=== PATIENT | female | born 1965 | race Two or more races ===

== ENCOUNTER → 2017-05-13 | Outpatient (CLI) | payer OTHER ==
--- NOTE | 2017-05-13 13:02 | RADIOLOGY REPORT (SQ) ---
EXAM DESCRIPTION: SHOULDER LEFT 2 OR MORE VIEWS COMPLETED DATE/TIME: 05/13/2017 11:36 am REASON FOR STUDY: PAIN IN LEFT SHOULDER M25.512 PAIN IN LEFT SHOULDER COMPARISON: None. NUMBER OF VIEWS: Three views. TECHNIQUE: Internal rotation, external rotation, and Y view images acquired of the left shoulder. LIMITATIONS: None. FINDINGS: MINERALIZATION: Normal. BONES: No acute fracture or dislocation. No worrisome bone lesions. JOINTS: Normal glenohumeral joint alignment. No widening at the acromioclavicular joint. Mild bony spurring and subcortical cyst formation at the AC joint. VISUALIZED LUNGS AND RIBS: 1 cm nodular area of pleural thickening at the left lung apex. Follow-up two-view chest film recommended. SOFT TISSUES: No radiopaque foreign body. OTHER: No other significant finding. IMPRESSION: Degenerative changes at the left acromioclavicular joint Incidental finding of a 1 cm nodular area of pleural thickening at the left lung apex. Follow-up two -view chest recommended TECHNICAL DOCUMENTATION: JOB ID: [id number] [employer]- All Rights Reserved
== END ==
LOC: OD 11:18
PROVIDERS: ATTEND Physician Assistant
DX: M25.512 Pain in left shoulder (principal)

== ENCOUNTER → 2017-05-18 | Outpatient (CLI) | payer OTHER ==
--- NOTE | 2017-05-18 12:55 | RADIOLOGY REPORT (SQ) ---
EXAM DESCRIPTION: CHEST PA/LATERAL COMPLETED DATE/TIME: 05/18/2017 11:29 am REASON FOR STUDY: LUNG NODULE COMPARISON: None. EXAM PARAMETERS: NUMBER OF VIEWS: two views TECHNIQUE: Digital Frontal and Lateral radiographic views of the chest acquired. RADIATION DOSE: NA LIMITATIONS: none FINDINGS: LUNGS AND PLEURA: No opacities, masses or pneumothorax. No pleural effusion. MEDIASTINUM AND HILAR STRUCTURES: No masses or contour abnormalities. HEART AND VASCULAR STRUCTURES: Heart normal size. No evidence for failure. BONES: No acute findings. HARDWARE: None in the chest. OTHER: No other significant finding. IMPRESSION: NO SIGNIFICANT RADIOGRAPHIC FINDING IN THE CHEST. TECHNICAL DOCUMENTATION: JOB ID: [id number] [employer]- All Rights Reserved
== END ==
LOC: OD 11:12
PROVIDERS: ATTEND Physician Assistant
DX: R91.1 Solitary pulmonary nodule (principal)
CPT/HCPCS: 71046

== ENCOUNTER 2017-07-19 11:38 | Emergency (ER) | payer OTHER ==
[2017-07-19] MEDS ORDERED: NORMAL SALINE 1000 ML 1,000 ML IV ONE (12:03)
[2017-07-19] MEDS ORDERED: MORPHINE SULFATE 10 MG/ML INJ IV ONE (12:03)
[2017-07-19] MEDS ORDERED: ONDANSETRON HCL INJ/PF 4 MG/2 ML SDV IV ONE (12:03)
--- NOTE | 2017-07-19 12:04 | ER Document Report ---
ED Medical Screen (RME) - General Chief Complaint: Nausea/Vomiting Stated Complaint: WEAKNESS Time Seen by Provider: 07/19/17 12:02 Notes: Patient noticed a left forehead painful rash for the last 5 days. Initially was diagnosed as eczema and then cellulitis. Today she was told it may be shingles and referred to the emergency department. Patient has been taking antibiotics as well as antivirals. She complains of weakness chills nausea vomiting. She states that she has pain around her eye but no vision changes. TRAVEL OUTSIDE OF THE [place] IN LAST 30 DAYS: No - Related Data Allergies/Adverse Reactions: azithromycin [From Zithromax] Allergy (Verified 07/19/17 11:49) Past Medical History - Social History Chew tobacco use (# tins/day): No Frequency of alcohol use: None Drug Abuse: None Neurological Medical History: Reports: Hx Seizures Renal/ Medical History: Denies: Hx Peritoneal Dialysis Past Surgical History: Reports: Hx Cholecystectomy, Hx Hysterectomy, Hx Tubal Ligation Physical Exam - Vital signs Vitals: Temp Pulse Resp BP Pulse Ox 97.7 F 93 18 134/65 H 98 07/19/17 11:46 07/19/17 11:46 07/19/17 11:46 07/19/17 11:46 07/19/17 11:46 Course - Vital Signs Vital signs: Temp Pulse Resp BP Pulse Ox 97.7 F 93 18 134/65 H 98 07/19/17 11:46 07/19/17 11:46 07/19/17 11:46 07/19/17 11:46 07/19/17 11:46
[2017-07-19 12:44] LABS: ABSOLUTE LYMPHOCYTES (AUTO) 0.8 10^3/uL (0.5-4.7); ABSOLUTE MONOCYTES (AUTO) 0.5 10^3/uL (0.1-1.4); ABSOLUTE NEUT (AUTO) 7.9 10^3/uL (1.7-8.2); BASOPHILS % (AUTO) 0.4 % (0-2); EOSINOPHILS % (AUTO) 0.3 % (0-6); HEMATOCRIT 43.3 % (36.0-47.0); HEMOGLOBIN 14.9 g/dL (12.0-15.5); LYMPHOCYTES % (AUTO) 8.3 % (13-45); MEAN CORPUSCULAR HEMOGLOBIN 29.9 pg (27.0-33.4); MEAN CORPUSCULAR HGB CONC 34.5 g/dL (32.0-36.0); MEAN CORPUSCULAR VOLUME 87 fl (80-97); PLATELET COUNT 304 10^3/uL (150-450); RED BLOOD COUNT 4.99 10^6/uL (3.72-5.28); RED CELL DISTRIBUTION WIDTH 12.9 % (11.5-14.0); TOTAL CELLS COUNTED % (AUTO) 100 %; WHITE BLOOD COUNT 9.1 10^3/uL (4.0-10.5)
[2017-07-19 13:57] LABS: ALANINE AMINOTRANSFERASE 40 U/L (9-52); ALBUMIN 3.9 g/dL (3.5-5.0); ALKALINE PHOSPHATASE 84 U/L (38-126); ANION GAP 9 (5-19); ASPARTATE AMINO TRANSFERASE 31 U/L (14-36); BILIRUBIN,DIRECT 0.2 mg/dL (0.0-0.4); BILIRUBIN,TOTAL 0.2 mg/dL (0.2-1.3); BLOOD UREA NITROGEN 14 mg/dL (7-20); CALCIUM 8.8 mg/dL (8.4-10.2); CARBON DIOXIDE 26 mmol/L (22-30); CHLORIDE 105 mmol/L (98-107); GLUCOSE 100 mg/dL (75-110); POTASSIUM 4.5 mmol/L (3.6-5.0); SODIUM 140.3 mmol/L (137-145); TOTAL PROTEIN 5.9 g/dL (6.3-8.2)
--- NOTE | 2017-07-19 14:04 | ER Document Report ---
ED General - General Chief Complaint: Nausea/Vomiting Stated Complaint: WEAKNESS Time Seen by Provider: 07/19/17 12:02 Mode of Arrival: Ambulatory Information source: Patient, Relative Notes: 51-year-old female with a history of seizures, (on Lamictal), migraines, presents with complaint of facial pain, nausea and vomiting. Patient states that she developed a rash 5 days prior to arrival. She states she was initially diagnosed with eczema and then 2 days later at urgent care diagnosed with shingles. She was placed on Valtrex, hydrocodone, Bactrim and Keflex. Patient presents today with facial swelling, nausea and one episode of vomiting. Patient denies any current nausea and states she believes it was because she took her hydrocodone without food. Patient denies current nausea, fever, chest pain, shortness of breath, abdominal pain, back pain, dysuria, vaginal discharge. She does admit to left ear pain, left facial pain and forehead pain. Denies prior similar symptoms. She has been taking her prescribed Lamictal. Her last seizure was yesterday. TRAVEL OUTSIDE OF THE [place] IN LAST 30 DAYS: No - HPI Onset: Last week Onset/Duration: Gradual Quality of pain: Burning Associated symptoms: Body/muscle aches, Nausea, Vomiting, Weakness. denies: Fever, Shortness of breath Exacerbated by: Denies Relieved by: Denies Similar symptoms previously: No Recently seen / treated by doctor: Yes - Related Data Allergies/Adverse Reactions: azithromycin [From Zithromax] Allergy (Verified 07/19/17 11:49) Past Medical History - General Information source: Patient - Social History Smoking Status: Current Every Day Smoker Chew tobacco use (# tins/day): No Frequency of alcohol use: None Drug Abuse: None Lives with: Family Family History: Reviewed & Not Pertinent Patient has suicidal ideation: No Patient has homicidal ideation: No - Medical History Medical History: Other - Seizure Neurological Medical History: Reports: Hx Migraine, Hx Seizures Renal/ Medical History: Denies: Hx Peritoneal Dialysis Past Surgical History: Reports: Hx Cholecystectomy, Hx Hysterectomy, Hx Tubal Ligation Review of Systems - Review of Systems Notes: Patient denies current headache, nausea, fever, chest pain, shortness of breath , abdominal pain, back pain, dysuria, vaginal discharge. She does admit to left ear pain, left facial pain and forehead pain. Physical Exam - Vital signs Vitals: Temp Pulse Resp BP Pulse Ox 97.7 F 93 18 134/65 H 98 07/19/17 11:46 07/19/17 11:46 07/19/17 11:46 07/19/17 11:46 07/19/17 11:46 - Notes Notes: PHYSICAL EXAMINATION: GENERAL: Well-appearing, well-nourished and in no acute distress. HEAD: Edema to the left side of the forehead, periorbital edema. Scattered scabbed lesions of the forehead, nonvesicular, nonpustular, EYES: Pupils equal round and reactive to light, extraocular movements intact, conjunctiva are normal. No corneal abrasion, or dendritic pattern. ENT: Nares patent, oropharynx clear without exudates. Moist mucous membranes. NECK: Normal range of motion, supple. positive cervical lymphadenopathy LUNGS: Breath sounds clear to auscultation bilaterally and equal. No wheezes rales or rhonchi. HEART: Regular rate and rhythm without murmurs ABDOMEN: Soft, nontender, nondistended abdomen. No guarding, no rebound. No masses appreciated. Female : deferred Musculoskeletal: Normal range of motion, no pitting or edema. No cyanosis. NEUROLOGICAL: Cranial nerves grossly intact. Normal speech, normal gait. Normal sensory, motor exams PSYCH: Normal mood, normal affect. SKIN: Warm, Dry, normal turgor, no rashes or lesions noted. Course - Re-evaluation Re-evalutation: Laboratory 07/19/17 07/19/17 07/19/17 12:27 12:27 13:25 WBC 9.1 RBC 4.99 Hgb 14.9 Hct 43.3 MCV 87 MCH 29.9 MCHC 34.5 RDW 12.9 Plt Count 304 Seg Neutrophils % 86.0 H Lymphocytes % 8.3 L Monocytes % 5.0 Eosinophils % 0.3 Basophils % 0.4 Absolute Neutrophils 7.9 Absolute Lymphocytes 0.8 Absolute Monocytes 0.5 Absolute Eosinophils 0.0 Absolute Basophils 0.0 Sodium Cancelled 140.3 Potassium Cancelled 4.5 Chloride Cancelled 105 Carbon Dioxide Cancelled 26 Anion Gap Cancelled 9 BUN Cancelled 14 Creatinine Cancelled 0.68 Est GFR ( Amer) Cancelled > 60 Est GFR (Non-Af Amer) Cancelled > 60 Glucose Cancelled 100 Calcium Cancelled 8.8 Total Bilirubin Cancelled 0.2 Direct Bilirubin Cancelled 0.2 Neonat Total Bilirubin Cancelled Not Reportable Neonat Direct Bilirubin Cancelled Not Reportable Neonat Indirect Bili Cancelled Not Reportable AST Cancelled 31 ALT Cancelled 40 Alkaline Phosphatase Cancelled 84 Total Protein Cancelled 5.9 L Albumin Cancelled 3.[address] 07/19/17 13:47 IMPRESSION: No evidence of orbital cellulitis. Small bilateral superficial parotid gland masses. 07/19/17 14:08 51-year-old female with a history of seizures, (on Lamictal), migraines presents with complaint of facial pain, nausea and vomiting. Patient states that she developed a rash 5 days prior to arrival. She states she was initially diagnosed with eczema and then 2 days later at urgent care diagnosed with shingles. She was placed on Valtrex, hydrocodone, Bactrim and Keflex. Patient presents today with facial swelling, nausea and one episode of vomiting. Vital Signs stable upon arrival. She is afebrile, not hypoxic. Patient does not appear toxic or dehydrated. She is in no acute distress. Exam is significant for scabbed lesions on the forehead and periorbital edema with mild tenderness with palpation. Slit lamp exam was performed and showed no dendritic lesions. CBC is without leukocytosis or anemia, CMP shows no electrolyte abnormalities. CT of the face is pending to assess for orbital cellulitis versus facial cellulitis. 07/19/17 16:27 I did speak to the radiologist regarding the parotid masses notated on CT of the face. She states they are likely parotid lymph nodes and recommends ENT follow-up. I have discussed all of the findings with the patient who has her family at the bedside and is comfortable with discharge home. - Vital Signs Vital signs: Temp Pulse Resp BP Pulse Ox 97.7 F 93 17 121/55 L 97 07/19/17 11:46 07/19/17 11:46 07/19/17 13:01 07/19/17 13:01 07/19/17 13:01 - Laboratory Result Diagrams: 07/19/17 12:27 07/19/17 13:25 Laboratory results interpreted by me: 07/19/17 07/19/17 12:27 13:25 Seg Neutrophils % 86.0 H Lymphocytes % 8.3 L Total Protein 5.9 L - Diagnostic Test Radiology reviewed: Pending Discharge - Discharge Clinical Impression: Facial swelling, Parotitis, acute Zoster Qualifiers: Herpes zoster complications: without complications Qualified Code(s): B02.9 - Zoster without complications Condition: Good Disposition: HOME, SELF-CARE Instructions: Acute Parotid Gland Swelling ([facility]), Shingles ([facility]) Additional Instructions: Please make an appointment with your medical imaging technologist in the next 1-3 days. Prescriptions: Clindamycin HCl 600 mg PO TID 10 Days #60 capsule Ondansetron HCl [Zofran 4 mg Tablet] 1 - 2 tab PO Q4H PRN #10 tablet PRN Reason: Referrals: NEW BOSE PA-C [Primary Care Provider] - Follow up in 3-5 days LEV BARRIOS DO [ASSOCIATE] - Follow up as needed
[2017-07-19] MEDS ORDERED: CLINDAMYCIN 600 MG/D5W RTU 600 MG/50 ML RTUPB IV ONE (15:42)
--- NOTE | 2017-07-19 15:46 | RADIOLOGY REPORT (SQ) ---
EXAM DESCRIPTION: CT FACIAL AREA WITH COMPLETED DATE/TIME: 07/19/2017 2:35 pm REASON FOR STUDY: concern for orbital cellulits COMPARISON: None. TECHNIQUE: Post contrast images through the facial bones and orbits windowed for bone and soft tissu e. Additional coronal and sagittal reconstructed images reviewed. All images stored on PACS. All CT scanners at this facility use dose modulation, iterative reconstruction, and/or weight based d osing when appropriate to reduce radiation dose to as low as reasonably achievable (ALARA). [facility]: Dose Right [facility]: CareDose [facility]: Dose Right [facility]: Teradose 4D [facility]: Contraqer CONTRAST TYPE AND DOSE: contrast/concentration: Isovue 370.00 mg/ml; Total Contrast Delivered: 50.0 ml; Total Saline Delivered: 50.0 ml RENAL FUNCTION: NA. RADIATION DOSE: CT Rad equipment meets quality standard of care and radiation dose reduction techniq ues were employed. CTDIvol: 30.4 mGy. DLP: 600 mGy-cm. . LIMITATIONS: None. FINDINGS: FACIAL BONES: No fracture or bone lesion. ORBITS: Intact. No fracture. Symmetric intact globes and retroorbital soft tissues. PARANASAL SINUSES: Retention cyst floor of right maxillary sinus. Otherwise maxillary sinuses demons trate no abnormality. No abnormality of frontal ethmoid or sphenoid sinuses. No nasal polyps. Maxil amty sinus outlets are patent. SOFT TISSUES: There are well-circumscribed enhancing masses noted in the superficial right and left p arotid glands. INFERIOR BRAIN: Limited view. No acute findings. OTHER: Small bilateral cervical nodes. BONY STRUCTURES: Cervical spondylosis with degenerative disc disease at C3 -7. IMPRESSION: No evidence of orbital cellulitis. Small bilateral superficial parotid gland masses. TECHNICAL DOCUMENTATION: JOB ID: [id number] Quality ID # [id number]: Final reports with documentation of one or more dose reduction techniques (e.g., Au tomated exposure control, adjustment of the mA and/or kV according to patient size, use of iterative reconstruction technique) 2010 [employer]- All Rights Reserved Reading location - IP/workstation name: [email or web address]
[2017-07-19] MEDS ORDERED: FENTANYL CITRATE INJ/PF 100 MCG/2 ML AMPUL IV ONE (15:57)
[2017-07-19 16:35] VITALS: BP 117/54
== END 2017-07-19 16:35 | disposition home or self-care (01) ==
LOC: ER 11:38
DX: B02.9 Zoster without complications (principal); K11.21 Acute sialoadenitis; R11.2 Nausea with vomiting, unspecified; R51 Headache; H92.02 Otalgia, left ear; R53.1 Weakness; F17.200 Nicotine dependence, unspecified, uncomplicated; R56.9 Unspecified convulsions; Z79.899 Other long term (current) drug therapy; Z88.1 Allergy status to other antibiotic agents
CPT/HCPCS: 99285; 96361; 96374; 96375; 36415; 85025; 80053; 70487; J3010; J2270; J2405; J7030

== ENCOUNTER 2018-09-07 07:59 | Emergency (ER) | payer OTHER ==
[2018-09-07 08:13] VITALS: BP 122/54
[2018-09-07] MEDS ORDERED: FAMOTIDINE 20 MG TABLET PO ONE (09:23)
[2018-09-07] MEDS ORDERED: PREDNISONE 20 MG TABLET PO ONE (09:23)
[2018-09-07] MEDS ORDERED: ASPIRIN 81 MG TABLET, CHEWABLE PO ONE (09:23)
--- NOTE | 2018-09-07 09:26 | ER Document Report ---
ED Medical Screen (RME) - General Chief Complaint: Allergic Reaction Stated Complaint: POSSIBLE ALLERGIC REACTION Time Seen by Provider: 09/07/18 09:23 Primary Care Provider: NEW BOSE PA-C [Primary Care Provider] - Follow up as needed Mode of Arrival: Ambulatory Information source: Patient Notes: 52-year-old female presented to ED for complaint of swelling to her tongue and lips since the weekend. She states she went to her primary care doctor yesterday and was prescribed steroids but they accidentally sent the prescription to [facility] instead of [facility] so she was not able to get them. She states she went home the swelling got worse to her lips and mouth and she now has pain to her neck and chest. Patient states the PCM did blood work yesterday to check for allergies but what she will not get those results back until Wednesday. She states she did not have chest pain yesterday when she saw the doctor. Patient does have a history of seizures but does not have a history of heart problems. She does have a history of a hysterectomy bilateral tubal ligation gallbladder removal. She does smoke cigarettes 6 a day no alcohol no drugs. I have greeted and performed a rapid initial assessment of this patient. A comprehensive ED assessment and evaluation of the patient, analysis of test results and completion of medical decision making process will be conducted by an additional ED providers. Dictation of this chart was performed using voice recognition software; therefore, there may be some unintended grammatical errors. TRAVEL OUTSIDE OF THE [place] IN LAST 30 DAYS: No - Related Data Allergies/Adverse Reactions: azithromycin [From Zithromax] Allergy (Verified 09/07/18 08:00) Past Medical History Neurological Medical History: Reports: Hx Migraine, Hx Seizures Renal/ Medical History: Denies: Hx Peritoneal Dialysis Past Surgical History: Reports: Hx Cholecystectomy, Hx Hysterectomy, Hx Tubal Ligation Physical Exam - Vital signs Vitals: Temp Pulse BP Pulse Ox 98.2 F 80 122/54 L 98 09/07/18 08:08 09/07/18 08:08 09/07/18 08:08 09/07/18 08:08 Course - Vital Signs Vital signs: Temp Pulse Resp BP Pulse Ox 98.2 F 80 122/54 L 98 09/07/18 08:08 09/07/18 08:08 09/07/18 08:08 09/07/18 08:08 Doctor's Discharge - Discharge Referrals: NEW BOSE PA-C [Primary Care Provider] - Follow up as needed
[2018-09-07 10:01] LABS: APPEARANCE,URINE CLEAR; BILIRUBIN,URINE NEGATIVE (NEGATIVE); COLOR,URINE STRAW; GLUCOSE, URINE NEGATIVE (NEGATIVE); KETONES,URINE NEGATIVE (NEGATIVE); LEUKOCYTE ESTERASE,URINE TRACE (NEGATIVE); NITRITE,URINE NEGATIVE (NEGATIVE); PROTEIN,URINE NEGATIVE (NEGATIVE); URINE SPECIFIC GRAVITY 1.002; UROBILINOGEN,URINE NEGATIVE mg/dL (<2.0)
[2018-09-07 10:03] LABS: ABSOLUTE EOSINOPHILS # (AUTO) 0.1 10^3/uL (0.0-0.6); ABSOLUTE LYMPHOCYTES (AUTO) 2.3 10^3/uL (0.5-4.7); ABSOLUTE MONOCYTES (AUTO) 0.6 10^3/uL (0.1-1.4); ABSOLUTE NEUT (AUTO) 10.4 10^3/uL (1.7-8.2); BASOPHILS % (AUTO) 0.4 % (0-2); EOSINOPHILS % (AUTO) 1.1 % (0-6); HEMATOCRIT 47.2 % (36.0-47.0); HEMOGLOBIN 16.1 g/dL (12.0-15.5); LYMPHOCYTES % (AUTO) 16.8 % (13-45); MEAN CORPUSCULAR HEMOGLOBIN 29.4 pg (27.0-33.4); MEAN CORPUSCULAR HGB CONC 34.1 g/dL (32.0-36.0); MEAN CORPUSCULAR VOLUME 86 fl (80-97); MONOCYTES % (AUTO) 4.2 % (3-13); RED BLOOD COUNT 5.47 10^6/uL (3.72-5.28); RED CELL DISTRIBUTION WIDTH 13.1 % (11.5-14.0); SEGMENTED NEUTROPHILS % (AUTO) 77.5 % (42-78); TOTAL CELLS COUNTED % (AUTO) 100 %; WHITE BLOOD COUNT 13.4 10^3/uL (4.0-10.5)
[2018-09-07 10:21] LABS: ALANINE AMINOTRANSFERASE 31 U/L (9-52); ALBUMIN 4.8 g/dL (3.5-5.0); ALKALINE PHOSPHATASE 99 U/L (38-126); ANION GAP 13 (5-19); ASPARTATE AMINO TRANSFERASE 31 U/L (14-36); BILIRUBIN,DIRECT 0.4 mg/dL (0.0-0.4); BILIRUBIN,TOTAL 0.6 mg/dL (0.2-1.3); BLOOD UREA NITROGEN 12 mg/dL (7-20); CALCIUM 9.9 mg/dL (8.4-10.2); CARBON DIOXIDE 24 mmol/L (22-30); CHLORIDE 106 mmol/L (98-107); GLUCOSE 90 mg/dL (75-110); LIPASE 106.1 U/L (23-300); POTASSIUM 4.7 mmol/L (3.6-5.0); SODIUM 142.9 mmol/L (137-145); TOTAL PROTEIN 7.4 g/dL (6.3-8.2)
[2018-09-07 10:25] LABS: PLATELET COUNT 303 10^3/uL (150-450)
[2018-09-07 10:31] LABS: CREATINE KINASE MB 0.56 ng/mL (<4.55)
[2018-09-07 10:41] LABS: TROPONIN I < 0.012 ng/mL
--- NOTE | 2018-09-07 12:03 | RADIOLOGY REPORT (SQ) ---
EXAM DESCRIPTION: CHEST 2 VIEWS COMPLETED DATE/TIME: 09/07/2018 11:54 am REASON FOR STUDY: cough COMPARISON: 05/18/2017 EXAM PARAMETERS: NUMBER OF VIEWS: two views TECHNIQUE: Digital Frontal and Lateral radiographic views of the chest acquired. RADIATION DOSE: NA LIMITATIONS: none FINDINGS: LUNGS AND PLEURA: No opacities, masses or pneumothorax. No pleural effusion. Stable biapi shola scarring. MEDIASTINUM AND HILAR STRUCTURES: No masses or contour abnormalities. HEART AND VASCULAR STRUCTURES: Heart normal size. No evidence for failure. BONES: No acute findings. HARDWARE: Prior cholecystectomy. OTHER: No other significant finding. IMPRESSION: No focal airspace disease or other evidence of acute cardiopulmonary process. TECHNICAL DOCUMENTATION: JOB ID: [id number] [employer]- All Rights Reserved Reading location - IP/workstation name: [email or web address]
--- NOTE | 2018-09-07 12:43 | ER Document Report ---
ED Allergic Reaction - General Chief Complaint: Allergic Reaction Stated Complaint: POSSIBLE ALLERGIC REACTION Time Seen by Provider: 09/07/18 09:23 Primary Care Provider: NEW BOSE PA-C [NO LOCAL MD] - Follow up as needed Mode of Arrival: Ambulatory Information source: Patient, Relative Notes: Patient is a 52-year-old female comes emergency room complaining of allergic reaction. Patient states that she started with a minor reaction on the weekend and believes it might have been from a new meter of that they attempted. On the next couple days she started noticing tingling and swelling of her lips and then yesterday she noticed lips and tongue. She went to her primary care provider yesterday and she was written for some steroids but there was a mixup and she was not able to pick them up today. Patient states that overnight the tongue got worse and the lips got bigger so she decided to come to the emergency room. Again the only thing he can think of was the mirror of the they have changed differently. This morning she also had also mild amount of shortness of breath and a hard time catching her breath. She has had no chest pain no nausea or vomiting. TRAVEL OUTSIDE OF THE [place] IN LAST 30 DAYS: No - HPI Onset: Other - 3 days Onset/Duration: Sudden, Worse Quality of pain: No pain Severity: Moderate Pain Level: 3 Identified cause: Possibly Food exposure: Other - Spice Skin rash / itching: Facial Swelling: Face, Lip(s), Tongue, Throat Trouble swallowing / speaking: Mild Associated symptoms: Other - Shortness of breath Similar symptoms previously: No Recently seen / treated by doctor: No - Related Data Allergies/Adverse Reactions: azithromycin [From Zithromax] Allergy (Verified 09/07/18 08:00) Past Medical History - General Information source: Relative - Social History Smoking Status: Current Every Day Smoker Cigarette use (# per day): Yes - 6 cigarettes a day Chew tobacco use (# tins/day): No Smoking Education Provided: Yes Frequency of alcohol use: None Drug Abuse: None Lives with: Family Family History: Reviewed & Not Pertinent Neurological Medical History: Reports: Hx Migraine, Hx Seizures Renal/ Medical History: Denies: Hx Peritoneal Dialysis Past Surgical History: Reports: Hx Cholecystectomy, Hx Hysterectomy, Hx Tubal Ligation Review of Systems - Review of Systems Constitutional: No symptoms reported EENT: Nose congestion, Throat swelling, Mouth swelling Cardiovascular: No symptoms reported Respiratory: Cough, Short of breath Gastrointestinal: No symptoms reported Genitourinary: No symptoms reported Female Genitourinary: No symptoms reported Musculoskeletal: No symptoms reported Skin: No symptoms reported Hematologic/Lymphatic: No symptoms reported Neurological/Psychological: No symptoms reported -: Yes All other systems reviewed and negative Physical Exam - Vital signs Vitals: Temp Pulse BP Pulse Ox 98.2 F 80 122/54 L 98 09/07/18 08:08 09/07/18 08:08 09/07/18 08:08 09/07/18 08:08 Interpretation: Normal - Notes Notes: PHYSICAL EXAMINATION: GENERAL: Patient is a well-nourished well-developed 52-year-old female is in no apparent distress today on physical examination. HEAD: Atraumatic, normocephalic. EYES: Pupils equal round and reactive to light, extraocular movements intact, conjunctiva are normal. ENT: Examination of patient's area of complaint are her lips and tongue and throat. Examination after receiving the oral prednisone and the H2 bryant her symptomatology had faded and her lips were back to almost normal the tongue was almost normal and the throat was normal. There is no signs of any obstructions. Airway was patent. NECK: Normal range of motion, supple without lymphadenopathy LUNGS: Breath sounds clear to auscultation bilaterally and equal. No wheezes rales or rhonchi. HEART: Regular rate and rhythm without murmurs NEUROLOGICAL: Normal speech, normal gait. Normal sensory, motor exams PSYCH: Normal mood, normal affect. SKIN: No rash seen on patient's abdomen back or extremities Course - Re-evaluation Re-evalutation: 09/07/18 12:43 Patient progressed relatively fast on the medications was provided here in the emergency room. I cannot find any abnormalities on my physical exam however felt it was in order to be complete she needed at least a chest x-ray and spent a little time while the medications had further time to work. I did contact the pharmacy at [facility] and I talked to the pharmacist there her provider did call her in a rather long taper however its waiting for her at the pharmacy. Also placing her on Zantac 150 mg twice daily for 14 days. I have instructed her if she has any itching going on she can take Benadryl 50 mg every 6 hours. I am also writing her a EpiPen in case the symptomatology returns back. I also instructed her to contact her primary care provider in order for her to be worked up on her allergies are to see if she needs to see an benefits specialist. - Vital Signs Vital signs: Temp Pulse Resp BP Pulse Ox 98.2 F 80 122/54 L 98 09/07/18 08:08 09/07/18 08:08 09/07/18 08:08 09/07/18 08:08 - Laboratory Result Diagrams: 09/07/18 09:45 09/07/18 09:45 Laboratory results interpreted by me: 09/07/18 09/07/18 09:45 09:45 WBC 13.4 H RBC 5.47 H Hgb 16.1 H Hct 47.2 H Absolute Neutrophils 10.4 H Ur Leukocyte Esterase TRACE H Discharge - Discharge Clinical Impression: Allergic reaction Qualifiers: Encounter type: initial encounter Qualified Code(s): T78.40XA - Allergy, unspecified, initial encounter Angioedema Qualifiers: Encounter type: initial encounter Qualified Code(s): T78.3XXA - Angioneurotic edema, initial encounter Condition: Stable Disposition: HOME, SELF-CARE Instructions: Acute Allergic Reaction ([facility]) Additional Instructions: As we discussed your primary care doctor has called you and a taper of steroids. Take them as he is directed you. Of also going to write you a prescription for Zantac 150 mg take that twice a day for the next 14 days. If you should have any itching occur you should also take Benadryl 50 mg every 6 hours for the itching highly important you try to remove any offensive substance such as the meat rub that she did inform me about however since we cannot be 100% certain this is the problem I am also writing you for a EpiPen. As I have indicated to you that if you become associated with that offending substance again that the reaction could be worse than this could stop you from breathing. Highly important to carry this EpiPen with you at all times. Again you need to contact her primary care provider for further follow-up and to see if he wishes you to see an benefits specialist. Should you have any concerns or problems return to ER for recheck. Prescriptions: Epinephrine [Epipen Jr 0.15 mg/0.3 mL AutoInject] 1 ea IM ASDIR PRN #1 autoinjector PRN Reason: Epinephrine [Epipen Jr 0.15 mg/0.3 mL AutoInject] 1 ea IM ASDIR PRN #1 autoinjector PRN Reason: Ranitidine HCl 150 mg PO BID #28 tablet Referrals: NEW BOSE PA-C [NO LOCAL MD] - Follow up as needed
--- NOTE | 2018-09-07 22:17 | EKG REPORT ---
SEVERITY:- NORMAL ECG - SINUS RHYTHM : Confirmed by: Rasheeda Ignacio MD 07-Sep-2018 22:16:26
== END 2018-09-07 13:30 | disposition home or self-care (01) ==
LOC: ER 07:59
DX: T78.3XXA Angioneurotic edema, initial encounter (principal); T38.0X6A Underdosing of glucocorticoids and synthetic analogues, initial encounter; Z91.128 Patient's intentional underdosing of medication regimen for other reason; Z91.14 Patient's other noncompliance with medication regimen; R06.02 Shortness of breath; R09.81 Nasal congestion; R05 Cough; F17.210 Nicotine dependence, cigarettes, uncomplicated; Z88.1 Allergy status to other antibiotic agents
CPT/HCPCS: 93005; 99284; 36415; 87086; 82553; 83690; 85025; 80053; 81001; 84484; 71046; 93010; J7512

== ENCOUNTER → 2019-07-07 | Outpatient (CLI) | payer OTHER ==
[2019-07-07 15:48] LABS: FREE T4 (FREE THYROXINE) 1.11 ng/dL (0.78-2.19)
[2019-07-07 16:01] LABS: THYROID STIMULATING HORMONE 1.75 uIU/mL (0.47-4.68)
== END ==
LOC: OD 14:18
PROVIDERS: ATTEND Otolaryngology
DX: J30.9 Allergic rhinitis, unspecified (principal); M05.20 Rheumatoid vasculitis with rheumatoid arthritis of unspecified site
CPT/HCPCS: 36415; 82785; 84439; 84443; 86003

== ENCOUNTER → 2019-07-11 | Outpatient (CLI) | payer OTHER ==
--- NOTE | 2019-07-11 17:25 | RADIOLOGY REPORT (SQ) ---
EXAM DESCRIPTION: CT SINUSES FOR ENT IMAGES COMPLETED DATE/TIME: 07/11/2019 1:41 pm REASON FOR STUDY: J30.9 ALLERGIC RHINITIS, UNSPECIFIED J30.9 ALLERGIC RHINITIS, UNSPECIFIED COMPARISON: CT sinuses/ facial bones 07/19/2017 TECHNIQUE: Noncontrast scanning through the paranasal sinuses using bone algorithm. Reconstructed MPR images reviewed. All images stored on PACS. All CT scanners at this facility use dose modulation, iterative reconstruction, and/or weight based d osing when appropriate to reduce radiation dose to as low as reasonably achievable (ALARA). [facility]: Dose Right [facility]: CareDose [facility]: Dose Right [facility]: Teradose 4D [facility]: [employer] RADIATION DOSE: 47mGy. LIMITATIONS: None. FINDINGS: Right sinuses and drainage pathways: Post-surgical changes: None. Frontal sinus: Normal. Frontoethmoidal Recess: Normal. Anterior Ethmoid Sinuses: Normal. Posterior Ethmoid Sinuses: Normal. Sphenoid Sinus: Normal. Sphenoethmoidal Recess: Normal. Maxillary Sinus: Mucus or serous retention cyst, floor right maxillary sinus Ostiomeatal Complex: Normal. Left Sinuses and Drainage Pathways: Post-Surgical Changes: None. Frontal Sinus: Normal. Frontoethmoidal Recess: Normal. Anterior Ethmoid Sinuses: Normal. Posterior Ethmoid Sinuses: Normal. Sphenoid Sinus: Normal. Sphenoethmoidal Recess: Normal. Maxillary Sinus: Normal. Ostiomeatal Complex: Normal. Right Olfactory Fossa: No polyps. Left Olfactory Fossa: No polyps. Middle Turbinate Luma Bullosa: No. Paradoxical Middle Turbinate: No. Atelectatic Uncinated Process: No. Frontal Melissa Cell Type I: No. Frontal Melissa Cell Type II: Bilateral Interfrontal Sinus Septal Cell: None Supra-Orbital Ethmoid: Bilateral Frontal Bullar Cell: None. Suprabullar Bullar Cell: None. Sphenoethmoidal (Onodi) Cell: None. Pneumatization of the Anterior Clinoid Processes: No Hypoplastic Maxillary Sinus: None. Osteoneogenesis: None. Bone Dehiscence:None. Nasal Cavity: Normal. Nasal Septum: Midline Anatomic Variants: Right Vidian Canal: Normal. Left Vidian Canal: Normal. IMPRESSION: NO EVIDENCE OF ACUTE OR CHRONIC SINUSITIS. TECHNICAL DOCUMENTATION: JOB ID: [id number] Quality ID # [id number]: Final reports with documentation of one or more dose reduction techniques (e.g., Au tomated exposure control, adjustment of the mA and/or kV according to patient size, use of iterative reconstruction technique) 2010 [employer]- All Rights Reserved Reading location - IP/workstation name: [id number]
== END ==
LOC: RAD 13:21
PROVIDERS: ATTEND Otolaryngology
DX: J30.9 Allergic rhinitis, unspecified (principal)
CPT/HCPCS: 70486

== ENCOUNTER 2019-12-22 08:05 | Day surgery (SDC) | payer OTHER ==
[~2019-12-22 08:05] MED LIST: PROPOFOL INJ 200 MG/20 ML VIAL IV ONE
--- NOTE | 2019-12-22 09:46 | Operative Report ---
Operative Report DATE OF SURGERY: 12/22/19 Operative Report: The risk, benefits and alternatives of the procedure including the risk of bleeding, perforation requiring surgery have been explained to the patient in detail and informed consent has been obtained. Patient is placed in a left, lateral decubital position. A rectal examination is done. It did not reveal any masses tears or fissures. An Olympus videoscope was introduced into the patient's rectum and advanced all the way to the cecum. Cecum was identified by the usual anatomical landmarks including the ileocecal valve as well as the appendiceal office. Photodocumentation is obtained. Scope was then sequentially pulled back via the various segments of the colon including the ascending colon, hepatic flexure, transverse colon, splenic flexure, descending colon and finally into the rectosigmoid portions of the colon. Retroflexion maneuver is performed. The risks benefits and alternatives of the procedure explained to the patient in detail and informed consent is obtained.A GIF Olympus video scope was inserted into the patient's mouth and hypopharynx, the esophagus is identified intubated and insufflated ,the scope was then advanced through the esophagus stomach and duodenum ,retroflexion maneuver is done ,the esophagus stomach and first and second portions of the duodenum examined PREOPERATIVE DIAGNOSIS: Epigastric pain. Colorectal cancer screening POSTOPERATIVE DIAGNOSIS: Gastritis status post biopsy. Mild duodenitis. Patent ampulla. Right colon inflammation status post biopsy. Sigmoid colon polyp s tatus post biopsy OPERATION: Colonoscopy with biopsy. EGD with biopsy SURGEON: BOBY BLANTON ANESTHESIA: LMAC TISSUE REMOVED OR ALTERED: As noted above. COMPLICATIONS: None. ESTIMATED BLOOD LOSS: None. INTRAOPERATIVE FINDINGS: As noted above. PROCEDURE: Patient tolerated the procedure well. No immediate postprocedure complications are noted. Patient is discharged in good condition. Discharge date 12/22/2019. Discharge diet: Regular. Discharge activity: Regular. 2 to 3-week follow-up to discuss findings. Patient is instructed to call the office or proceed to the emergency room should there be any further problems or questions. Wait on the pathology. 5-year surveillance colonoscopy.
[2019-12-22 10:15] VITALS: BP 111/52
== END 2019-12-22 10:18 | disposition home or self-care (01) ==
LOC: END 08:05
PROVIDERS: ATTEND Internal Medicine Gastroenterology
DX: Z12.11 Encounter for screening for malignant neoplasm of colon (principal); K63.5 Polyp of colon; K52.9 Noninfective gastroenteritis and colitis, unspecified; K29.50 Unspecified chronic gastritis without bleeding; K29.80 Duodenitis without bleeding; K21.9 Gastro-esophageal reflux disease without esophagitis; K44.9 Diaphragmatic hernia without obstruction or gangrene; G40.909 Epilepsy, unspecified, not intractable, without status epilepticus; G43.909 Migraine, unspecified, not intractable, without status migrainosus; F17.200 Nicotine dependence, unspecified, uncomplicated; Z79.890 Hormone replacement therapy; Z79.899 Other long term (current) drug therapy; Z88.1 Allergy status to other antibiotic agents; Z68.24 Body mass index [BMI] 24.0-24.9, adult; Z03.818 Encounter for observation for suspected exposure to other biological agents ruled out
CPT/HCPCS: 43239; 45380; 87635; 88342 ×2; 88305 ×2; 00813; J2704; C9803; 813

== ENCOUNTER → 2020-02-06 | Outpatient (CLI) | payer OTHER ==
--- NOTE | 2020-02-06 12:50 | RADIOLOGY REPORT (SQ) ---
EXAM DESCRIPTION: NM GASTRIC EMPTYING STUDY IMAGES COMPLETED DATE/TIME: 02/06/2020 12:23 pm REASON FOR STUDY: BILIOUS VOMITING R11.14 BILIOUS VOMITING COMPARISON: CT abdomen and pelvis 07/17/2019 RADIONUCLIDE AND DOSE: 2.12 millicuries Tc-99m Sulfur Colloid. mixed with scrambled egg. The route of agent administration: Oral. TECHNIQUE: 1 minute serial static imaging performed at time of meal, 1 hour, 2 hours, 3 hours, and 4 hours as needed. Once stomach reaches 90% emptying, the test is complete. Image intensity values pl otted with respect to time with linear regression algorithm. LIMITATIONS: None. FINDINGS: Patient was observed for 4 hours. Immediate post meal serves as baseline. Gastric emptying at 30 minutes was 26%. Gastric emptying at 60 minutes was 45% Gastric emptying at 90 minutes was 60%. Gastric emptying at 120 minutes was 70%. Gastric emptying at 240 minutes was 91% Normal values: 60 minutes: 30-90% retained. If less than 30%, abnormally rapid emptying. If greater than 90%, delaye d gastric emptying. 120 minutes: <60% retained. If greater than 60%, delayed gastric emptying. 240 minutes: <10% retained. If greater than 10%, delayed gastric emptying. IMPRESSION: NORMAL GASTRIC EMPTYING. TECHNICAL DOCUMENTATION: JOB ID: [id number] 2010 [employer]- All Rights Reserved Reading location - IP/workstation name: [email or web address]
== END ==
LOC: RAD 07:46
PROVIDERS: ATTEND Internal Medicine Gastroenterology
DX: R11.14 Bilious vomiting (principal)
CPT/HCPCS: 78264; A9541

== ENCOUNTER → 2020-02-10 | Outpatient (CLI) | payer OTHER ==
--- NOTE | 2020-02-12 16:47 | RADIOLOGY REPORT (SQ) ---
EXAM DESCRIPTION: CT SINUSES FOR ENT IMAGES COMPLETED DATE/TIME: 02/10/2020 12:37 pm REASON FOR STUDY: CYST/MUCOCELE OF SINUS J34.1 CYST AND MUCOCELE OF NOSE AND NASAL SINUS COMPARISON: None. TECHNIQUE: Noncontrast scanning through the paranasal sinuses using bone algorithm. Reconstructed MPR images reviewed. All images stored on PACS. All CT scanners at this facility use dose modulation, iterative reconstruction, and/or weight based d osing when appropriate to reduce radiation dose to as low as reasonably achievable (ALARA). [facility]: Dose Right [facility]: CareDose [facility]: Dose Right [facility]: Teradose 4D [facility]: [employer] RADIATION DOSE: 47 mGy LIMITATIONS: None. FINDINGS: Right sinuses and drainage pathways: Post-surgical changes: None. Frontal sinus: Normal. Frontoethmoidal Recess: Normal. Anterior Ethmoid Sinuses: Normal. Posterior Ethmoid Sinuses: Normal. Sphenoid Sinus: Normal. Sphenoethmoidal Recess: Normal. Maxillary Sinus: Small mucous or serous retention cyst floor right maxillary sinus Ostiomeatal Complex: Normal. Left Sinuses and Drainage Pathways: Post-Surgical Changes: None. Frontal Sinus: Normal. Frontoethmoidal Recess: Normal. Anterior Ethmoid Sinuses: Normal. Posterior Ethmoid Sinuses: Normal. Sphenoid Sinus: Normal. Sphenoethmoidal Recess: Normal. Maxillary Sinus: Normal. Ostiomeatal Complex: Normal. Right Olfactory Fossa: No polyps. Left Olfactory Fossa: No polyps. Middle Turbinate Luma Bullosa: No. Paradoxical Middle Turbinate: No. Atelectatic Uncinated Process: No. Frontal Melissa Cell Type I: Bilateral Frontal Melissa Cell Type II: No. Interfrontal Sinus Septal Cell: None. Supra-Orbital Ethmoid: None. Frontal Bullar Cell: None. Suprabullar Bullar Cell: None. Sphenoethmoidal (Onodi) Cell: None. Pneumatization of the Anterior Clinoid Processes: Yes, bilateral Hypoplastic Maxillary Sinus: None. Osteoneogenesis: None. Bone Dehiscence:None. Nasal Cavity: Normal. Nasal Septum: Midline Anatomic Variants: Right Vidian Canal: Normal. Left Vidian Canal: Normal. IMPRESSION: NO EVIDENCE OF ACUTE OR CHRONIC SINUSITIS. TECHNICAL DOCUMENTATION: JOB ID: [id number] Quality ID # [id number]: Final reports with documentation of one or more dose reduction techniques (e.g., Au tomated exposure control, adjustment of the mA and/or kV according to patient size, use of iterative reconstruction technique) 2010 [employer]- All Rights Reserved Reading location - IP/workstation name: [id number]
== END ==
LOC: RAD 10:31
PROVIDERS: ATTEND Otolaryngology
DX: J34.1 Cyst and mucocele of nose and nasal sinus (principal)
CPT/HCPCS: 70486

== ENCOUNTER → 2020-03-12 | Outpatient (CLI) | payer OTHER ==
--- NOTE | 2020-03-12 14:19 | WOMENS IMAGING REPORT ---
EXAM DESCRIPTION: BILAT SCREENING MAMMO W/CAD IMAGES COMPLETED DATE/TIME: 03/12/2020 1:38 pm REASON FOR STUDY: Z12.31 ENCNTR SCREEN MAMMOGRAM FOR MALIGNANT NEOPLASM OF BREAST Z12.31 ENCNTR SCR EEN MAMMOGRAM FOR MALIGNANT NEOPLASM OF BR[place]ANIE COMPARISON: 2012 EXAM PARAMETERS: Standard craniocaudal and mediolateral oblique views of each breast recorded using digital acquisition. Read with the assistance of CAD. .[facility] - [employer] Triple Drum Operator Version 9.2 LIMITATIONS: None. FINDINGS: No suspicious masses, suspicious calcifications or architectural distortion. No areas of c oncern. IMPRESSION: NEGATIVE MAMMOGRAM. BIRADS 1 BREAST DENSITY: b. There are scattered areas of fibroglandular density. BIRAD: ASSESSMENT: 1 NEGATIVE RECOMMENDATION: ROUTINE SCREENING COMMENT: The patient has been notified of the results by letter per MQSA requirements. Additional no tification policies are in place for contacting patient with suspicious or incomplete findings. Quality ID #[id number]: The [employer] recommends an annual screening mammogram for women aged 40 years or over. This facility utilizes a reminder system to ensure that all patients receive reminder letters, and/or direct phone calls for appointments. This includes reminders for routine scr eening mammograms, diagnostic mammograms, or other Breast Imaging Interventions when appropriate. Th is patient will be placed in the appropriate reminder system. TECHNICAL DOCUMENTATION: FINDING NUMBER: (1) ASSESSMENT: (1) JOB ID: [id number] 2010 [employer]- All Rights Reserved Reading location - IP/workstation name: [email or web address]
== END ==
LOC: WI 13:19
PROVIDERS: ATTEND Nurse Practitioner Family
DX: Z12.31 Encounter for screening mammogram for malignant neoplasm of breast (principal)
CPT/HCPCS: 77067